=== PATIENT | male | born 1960 | race Caucasian/White ===

== ENCOUNTER 2016-05-13 11:25 | Outpatient (CLI) ==
[2012-10-19 09:40] VITALS: TEMP 98.2
[2015-06-15 08:47] VITALS: BMI 29.4
[2016-05-13 11:45] LABS: HEMOGLOBIN 13.7 g/dl (14.0-18.0); MEAN CORPUSCULAR HGB CONC 31.9 (31.8-35.4); MEAN CORPUSCULAR VOLUME 94.1 fl (80.0-94.0); RED BLOOD COUNT 4.57 10^6/ul (4.70-6.10); WHITE BLOOD COUNT 7.76 K/ul (4.2-10.2)
[2016-05-13 12:01] LABS: ANION GAP 14.7; BUN/CREATININE RATIO 15.07; CALCIUM 9.3 mg/dL (8.2-10.2); CREATININE 3.25 mg/dL (0.60-1.10); POTASSIUM 5.7 mmol/L (3.5-5.1)
[2016-05-14 09:37] LABS: URINE CREATININE 152.7 mg/dL (Not Estab.)
[2016-05-14 14:34] LABS: URINE MALB/CR RATIO 5.5 mg/g creat (0.0-30.0)
== END 2016-05-13 11:26 | disposition home or self-care (01) ==
LOC: LAB 11:25
PROVIDERS: ATTEND Internal Medicine Nephrology
DX: N18.3 Chronic kidney disease, stage 3 (moderate) (principal)
CPT/HCPCS: 36415; 80048; 82043; 85027

== ENCOUNTER 2016-05-21 10:15 | Outpatient (CLI) ==
[2012-10-19 09:40] VITALS: TEMP 98.2
[2015-06-15 08:47] VITALS: BMI 29.4
[2016-05-21 10:56] LABS: ALBUMIN 4.6 g/dL (3.4-5.0); ALBUMIN/GLOBULIN RATIO 1.53; BILIRUBIN,TOTAL 0.89 mg/dL (0.00-1.20); BUN/CREATININE RATIO 20.33; TOTAL PROTEIN 7.6 g/dL (6.4-8.2)
== END 2016-05-21 10:16 | disposition home or self-care (01) ==
LOC: LAB 10:15
PROVIDERS: ATTEND Emergency Medicine
DX: E87.5 Hyperkalemia (principal)
CPT/HCPCS: 36415; 80053

== ENCOUNTER 2016-05-26 07:35 | Outpatient (CLI) ==
[2012-10-19 09:40] VITALS: TEMP 98.2
[2015-06-15 08:47] VITALS: BMI 29.4
[2016-05-26 08:08] LABS: ALBUMIN/GLOBULIN RATIO 1.33; ANION GAP 14.7; BILIRUBIN,TOTAL 0.55 mg/dL (0.00-1.20); BUN/CREATININE RATIO 17.93; CREATININE 2.23 mg/dL (0.60-1.10); POTASSIUM 4.7 mmol/L (3.5-5.1)
== END 2016-05-26 07:36 | disposition home or self-care (01) ==
LOC: LAB 07:35
PROVIDERS: ATTEND Emergency Medicine
DX: N18.9 Chronic kidney disease, unspecified (principal)
CPT/HCPCS: 36415; 80053

== ENCOUNTER 2016-06-27 10:58 | Outpatient (CLI) ==
[2012-10-19 09:40] VITALS: TEMP 98.2
[2015-06-15 08:47] VITALS: BMI 29.4
[2016-06-27 11:25] LABS: HEMATOCRIT 46.2 % (42.0-52.0); HEMOGLOBIN 15.5 g/dl (14.0-18.0); MEAN CORPUSCULAR HEMOGLOBIN 30.8 pg (27.0-31.0); MEAN CORPUSCULAR HGB CONC 33.5 (31.8-35.4); MEAN CORPUSCULAR VOLUME 91.7 fl (80.0-94.0); RED BLOOD COUNT 5.04 10^6/ul (4.70-6.10); WHITE BLOOD COUNT 7.18 K/ul (4.2-10.2)
[2016-06-27 11:38] LABS: BUN/CREATININE RATIO 11.8; CALCIUM 9.3 mg/dL (8.2-10.2); CREATININE 1.44 mg/dL (0.60-1.10)
[2016-07-02 08:18] LABS: URINE MALB/CR RATIO 56.8
== END 2016-06-27 10:59 | disposition home or self-care (01) ==
LOC: LAB 10:58
PROVIDERS: ATTEND Internal Medicine Nephrology
DX: N18.3 Chronic kidney disease, stage 3 (moderate) (principal)
CPT/HCPCS: 36415; 80048; 82043; 82570; 84156; 85027

== ENCOUNTER 2016-07-03 11:37 | Outpatient (CLI) ==
[2012-10-19 09:40] VITALS: TEMP 98.2
[2015-06-15 08:47] VITALS: BMI 29.4
--- NOTE | 2016-07-03 15:49 | MRI ---
EXAM: MRI left elbow without contrast. HISTORY: Pain. Olecranon process area sensitive to slight impact. Bump. No left elbow surgery. In jury. TECHNIQUE: Using a local extremity coil on a high field strength magnet multiplanar multisequence m agnet resonance imaging was performed of the left elbow without intravenous or intra-articular gadol inium contrast... COMPARISON: Three-view plain film examination left elbow 06/15/2015. FINDINGS: The alignment of the left elbow shows no dislocation or joint subluxations. Bone marrow signal intensity shows no acute fracture, stress fracture or bone erosions. Physiologic amount flui d left elbow joint. No osteochondral loose bodies. Posterior distal insertional triceps tendinosis . Some overlying skin thickening/induration. No discrete olecranon bursitis. Within the anterior compartment the distal insertional biceps and brachialis tendons intact and normal signal intensity. Within the lateral compartment the radial collateral ligament and lateral ulnar collateral ligament intact as is the annular ligament common extensor tendon origin intact and normal signal intensity a nd morphology. Within the medial compartment the ulnar collateral ligament intact. Ulnar nerve within normal limit s signal intensity and morphology located in expected position within the cubital tunnel. Origin of the flexor pronator wad intact and within normal limits signal intensity and morphology.. IMPRESSION: No acute fracture or stress fracture identified. No left elbow effusion. Posterior distal insertional triceps tendinosis. Some overlying skin thickening/induration without discrete olecranon bursitis. Intact medial and lateral compartment ligaments.
== END 2016-07-03 11:38 | disposition home or self-care (01) ==
LOC: RAD 11:37
PROVIDERS: ATTEND Orthopaedic Surgery
DX: M25.522 Pain in left elbow (principal)

== ENCOUNTER 2016-09-01 11:26 | Outpatient (CLI) ==
[2012-10-19 09:40] VITALS: TEMP 98.2
[2015-06-15 08:47] VITALS: BMI 29.4
[2016-09-01 11:51] LABS: HEMATOCRIT 54.2 % (42.0-52.0); HEMOGLOBIN 18.2 g/dl (14.0-18.0); MEAN CORPUSCULAR HEMOGLOBIN 29.9 pg (27.0-31.0); MEAN CORPUSCULAR HGB CONC 33.6 (31.8-35.4); MEAN CORPUSCULAR VOLUME 89.1 fl (80.0-94.0); RED BLOOD COUNT 6.08 10^6/ul (4.70-6.10); WHITE BLOOD COUNT 9.95 K/ul (4.2-10.2)
[2016-09-01 12:08] LABS: ALBUMIN 3.9 g/dL (3.4-5.0); BILIRUBIN,DIRECT 0.59 mg/dL (0.00-0.30); BILIRUBIN,TOTAL 1.46 mg/dL (0.00-1.20); TOTAL PROTEIN 6.9 g/dL (6.4-8.2)
[2016-09-02 05:11] LABS: TESTOSTERONE 1061 ng/dL (348-1197)
== END 2016-09-01 11:27 | disposition home or self-care (01) ==
LOC: LAB 11:26
PROVIDERS: ATTEND Physician Assistant Medical
DX: E29.1 Testicular hypofunction (principal)
CPT/HCPCS: 36415; 80076; 84403; 85027

== ENCOUNTER 2017-01-22 09:57 | Outpatient (CLI) ==
[2012-10-19 09:40] VITALS: TEMP 98.2
[2015-06-15 08:47] VITALS: BMI 29.4
[2017-01-22 10:45] LABS: HEMATOCRIT 40.2 % (42.0-52.0); HEMOGLOBIN 13.9 g/dl (14.0-18.0); MEAN CORPUSCULAR HEMOGLOBIN 31.2 pg (27.0-31.0); MEAN CORPUSCULAR HGB CONC 34.6 (31.8-35.4); MEAN CORPUSCULAR VOLUME 90.3 fl (80.0-94.0); RED BLOOD COUNT 4.45 10^6/ul (4.70-6.10); WHITE BLOOD COUNT 6.62 K/ul (4.2-10.2)
[2017-01-22 10:54] LABS: ANION GAP 11.8; BUN/CREATININE RATIO 15.95; CALCIUM 9.7 mg/dL (8.2-10.2); CREATININE 1.88 mg/dL (0.60-1.10); POTASSIUM 3.8 mmol/L (3.5-5.1)
[2017-01-23 08:38] LABS: URINE CREATININE 63.3 mg/dL (Not Estab.); URINE MALB/CR RATIO < 4.7 mg/g creat (0.0-30.0)
== END 2017-01-22 09:58 | disposition home or self-care (01) ==
LOC: LAB 09:57
PROVIDERS: ATTEND Internal Medicine Nephrology
DX: N18.3 Chronic kidney disease, stage 3 (moderate) (principal)
CPT/HCPCS: 36415; 80048; 82043; 85027

== ENCOUNTER 2017-03-17 11:44 | Outpatient (CLI) ==
[2012-10-19 09:40] VITALS: TEMP 98.2
[2015-06-15 08:47] VITALS: BMI 29.4
[2017-03-17 12:21] LABS: HEMATOCRIT 39.7 % (42.0-52.0); HEMOGLOBIN 13.8 g/dl (14.0-18.0); MEAN CORPUSCULAR HEMOGLOBIN 31.9 pg (27.0-31.0); MEAN CORPUSCULAR HGB CONC 34.8 (31.8-35.4); MEAN CORPUSCULAR VOLUME 91.9 fl (80.0-94.0); RED BLOOD COUNT 4.32 10^6/ul (4.70-6.10); WHITE BLOOD COUNT 7.92 K/ul (4.2-10.2)
[2017-03-17 13:04] LABS: ALBUMIN 3.3 g/dL (3.4-5.0); BILIRUBIN,DIRECT 0.33 mg/dL (0.00-0.30); BILIRUBIN,TOTAL 0.59 mg/dL (0.00-1.20); TOTAL PROTEIN 6.2 g/dL (6.4-8.2)
[2017-03-18 06:11] LABS: TESTOSTERONE 838 ng/dL (264-916)
== END 2017-03-17 11:45 | disposition home or self-care (01) ==
LOC: LAB 11:44
PROVIDERS: ATTEND Physician Assistant Medical
DX: E29.1 Testicular hypofunction (principal); N40.1 Benign prostatic hyperplasia with lower urinary tract symptoms
CPT/HCPCS: 36415; 80076; 84153; 84403; 85027

== ENCOUNTER 2017-07-09 08:33 | Outpatient (CLI) ==
[2012-10-19 09:40] VITALS: TEMP 98.2
[2015-06-15 08:47] VITALS: BMI 29.4
== END 2017-07-09 08:34 | disposition home or self-care (01) ==
LOC: LAB 08:33
PROVIDERS: ATTEND Internal Medicine Nephrology
DX: N18.3 Chronic kidney disease, stage 3 (moderate) (principal)
CPT/HCPCS: 36415; 80053; 82043; 85027

== ENCOUNTER 2017-10-12 12:23 | Outpatient (CLI) ==
[2012-10-19 09:40] VITALS: TEMP 98.2
[2015-06-15 08:47] VITALS: BMI 29.4
== END 2017-10-12 12:24 | disposition home or self-care (01) ==
LOC: LAB 12:23
PROVIDERS: ATTEND Physician Assistant Medical
DX: E29.1 Testicular hypofunction (principal)
CPT/HCPCS: 36415; 80076; 82670; 84403; 85025; 85027

== ENCOUNTER 2018-01-14 09:52 | Outpatient (CLI) ==
[2012-10-19 09:40] VITALS: TEMP 98.2
[2015-06-15 08:47] VITALS: BMI 29.4
== END 2018-01-14 09:53 | disposition home or self-care (01) ==
LOC: LAB 09:52
PROVIDERS: ATTEND Internal Medicine Nephrology
DX: N18.3 Chronic kidney disease, stage 3 (moderate) (principal)
CPT/HCPCS: 36415; 80053; 82570; 83970; 84156; 85027

== ENCOUNTER 2018-02-03 08:47 | Inpatient (IN) ==
--- NOTE | 2018-02-03 10:03 | CT ---
EXAM: CT Abdomen without contrast. CT Pelvis without contrast. HISTORY: Left flank pain. COMPARISON: 12/24/2009. TECHNIQUE: Multiple axial images of the abdomen and pelvis were obtained without intravenous contras t. Images were reformatted in the sagittal and coronal plane. FINDINGS: Please note that evaluation of the abdominal and pelvic structures is limited due to lack of intravenous contrast. No acute abnormality identified in the lung bases. Degenerative changes are present in the spine. The liver, gallbladder, pancreas, spleen, and adrenal glands demonstrate normal contour. There is a 0.2 cm nonobstructing left renal calculus. There is a 4.4 x 4.2 cm fluid density right renal cortica l lesion on axial image 53. Punctate nonobstructing right renal calculus noted on coronal image 61. 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 No hydronephrosis identified. No ure teral or bladder calculi identified. Bladder appears normal. There is mild wall thickening and adjacent inflammation of the sigmoid colon which occurs in the sett ing of diverticulosis. There is no evidence for bowel obstruction. There is no evidence for perfora tion or abscess. The appendix is normal. Fat-containing umbilical hernia noted. Suspect previous l eft inguinal hernia repair. Phleboliths noted in the pelvis. No free fluid or free air identified. Atherosclerotic calcifications noted. Nonenlarged mesenteric and retroperitoneal lymph nodes are id entified. IMPRESSION: 1. Mild acute sigmoid diverticulitis. 2. Bilateral nephrolithiasis without obstructive uropathy. Right renal cyst.
--- NOTE | 2018-02-03 10:42 | ED.PDOC ---
General ED Provider: Dr. SAMM CORTEZ Chief Complaint: Back Pain Stated Complaint: abominal pain bilateral flank pain Time Seen by Physician: 09:00 (roxie farr RN present at all times no injury reported ) Mode of Arrival: Stretcher Information Source: Patient, EMT Exam Limitations: No limitations Primary Care Provider: SALLY JAMA Nursing and Triage Documentation Reviewed and Agree: Yes Does patient meet sepsis criteria?: No If yes, has appropriate treatment been initiated?: No System Inflammatory Response Syndrome: Not Applicable Sepsis Protocol: For patient's 13 years and over: Temp is 96.8 and below OR 101 and greater Pulse >90 BPM Resp >20/minute Acutely Altered Mental Status Are patient's symptoms suggestive of a new infection, such as: -Pneumonia -Skin, Soft Tissue -Endocarditis -UTI -Bone, Joint Infection -Implantable Device -Acute Abdominal Infection -Wound Infection -Meningitis -Blood Stream Catheter Infection -Unknown GI Complaint Exam - Abdominal Pain Complaint/Exam Onset: Gradual Duration: 1 day Symptoms Are: Still present Timing: Intermittent Initial Severity: Moderate Current Severity: Mild Location of Pain: LLQ Radiates To: Reports: Flank (left) Character: Reports: Aching Aggravating: Reports: None Alleviating: Reports: None Associated Signs and Symptoms: Reports: Back pain, Constipation, Urinary frequency, Decreased appetite. Denies: Diaphoresis, Fever, Cough, Chest pain, Dizziness, Blood in stool, Dysuria, Decreased urine output, Discharge, Nausea, Vomiting, Diarrhea, Decreased activity Related History: Reports: Similar episode AAA Risk Factors: Reports: Hypertension Cardiac Risk Factors: Reports: DM, Hypertension, Elevated lipids Testicular Torsion Risk Factors: Reports: None Surgical Obstruction Risk Factors: Reports: None Related Surgical History: Reports: None Abdominal Findings: Present: None Differential Diagnoses: Appendicitis, Bowel Obstruction, Constipation, Diverticulitis, Renal Colic, UTI Quality Indicators for AMI: EKG in 10min. Quality Indicators for Cardiac Chest Pain: EKG in 10min. Quality Indicator For Non-Traumatic Chest Pain/Syncope: EKG Performed Review of Systems - Review Of Systems Constitutional: Reports: No symptoms Eyes: Reports: No symptoms Ears, Nose, Mouth, Throat: Reports: No symptoms Respiratory: Reports: No symptoms Cardiac: Reports: No symptoms GI: Reports: Abdominal pain : Reports: No symptoms Musculoskeletal: Reports: No symptoms Skin: Reports: No symptoms Neurological: Reports: No symptoms Endocrine: Reports: No symptoms Hematologic/Lymphatic: Reports: No symptoms All Other Systems: Reviewed and Negative Past Medical History - Past Medical History Endocrine: Reports: DM 2, Dyslipidemia Cardiovascular: Reports: Hypertension Respiratory: Reports: None Hematological: Reports: None Gastrointestinal: Reports: None Genitourinary: Reports: CKD Neuro/Psych: Reports: Anxiety Musculoskeletal: Reports: None Cancer: Reports: None Other Pertinent Past Medical History: neuropathy - Surgical History General Surgical History: Reports: Tonsillectomy, Adenoidectomy, Orthopedic ( right hand), Other (lymphnode removal) - Family History Family History: Reports: Unknown - Social History Smoking Status: Former smoker Hx Substance Use: No Alcohol Screening: None Physical Exam - Physical Exam Appearance: Well-appearing, No pain distress, Well-nourished Eyes: PRAVEENA, EOMI, Conjunctiva clear ENT: Ears normal, Nose normal, Oropharynx normal Respiratory: Airway patent, Breath sounds clear, Breath sounds equal, Respirations nonlabored Cardiovascular: RRR, Pulses normal, No rub, No murmur GI/: Soft, Nontender, No masses, Bowel sounds normal, No Organomegaly Musculoskeletal: Normal strength, ROM intact, No edema, No calf tenderness Skin: Warm, Dry, Normal color Neurological: Sensation intact, Motor intact, Reflexes intact, Cranial nerves intact, Alert, Oriented Psychiatric: Affect appropriate, Mood appropriate Interpretation - Radiology Interpretation Radiology Interpretation By: Radiologist Radiology Results: Positive (diverticulitis) Re-Evaluation - Re-Evaluation Time of Re-Evaluation: 10:00 Status: Unchanged Vital Signs Stable: Yes Pain Level: 3/10 Appearance: NAD Lungs: Clear Skin: Warm and Dry Neuro: Alert and Oriented X3 CV: RRR - Re-Evaluation Time of Re-Evaluation: 10:42 Status: Unchanged Vital Signs Stable: Yes Appearance: NAD Skin: Warm and Dry Neuro: Alert and Oriented X3 CV: RRR Physician Notification - Case Discussed Physician Notified: pmd Time of Notification: 10:42 (admitt) Admit To: Inpatient Critical Care Note - Critical Care Note Total Time (mins): 0 Course - Course Hematology/Chemistry: 02/03/18 09:30 02/03/18 09:30 Orders, Labs, Meds: Lab Review 02/03/18 02/03/18 02/03/18 09:30 09:30 09:30 WBC 7.72 RBC 3.45 L Hgb 11.2 L Hct 32.6 L MCV 94.5 H MCH 32.5 H MCHC 34.4 RDW Coeff of Bernard 13.8 Plt Count 87 L Immature Gran % (Auto) 0.3 Neut % (Auto) 70.0 Lymph % (Auto) 18.4 [place] % (Auto) 8.7 Eos % (Auto) 2.2 Baso % (Auto) 0.4 Immature Gran # (Auto) 0.0 Neut # (Auto) 5.4 Lymph # (Auto) 1.4 [place] # (Auto) 0.7 Eos # (Auto) 0.2 Baso # (Auto) 0.0 Sodium 136.7 L Potassium 3.98 Chloride 104.1 Carbon Dioxide 21.4 L Anion Gap 15.18 BUN 30.9 H Creatinine 2.00 H Estimated GFR (MDRD) 34.00 BUN/Creatinine Ratio 15.45 Glucose 206.2 H Lactic Acid 1.28 Calcium 8.62 Total Bilirubin 0.82 AST 44.1 ALT 25.3 Alkaline Phosphatase 241.1 H Total Protein 6.18 L Albumin 3.48 L Globulin 2.70 Albumin/Globulin Ratio 1.28 Amylase 119.7 H Lipase 203.8 Procalcitonin 02/03/18 09:30 WBC RBC Hgb Hct MCV MCH MCHC RDW Coeff of Bernard Plt Count Immature Gran % (Auto) Neut % (Auto) Lymph % (Auto) [place] % (Auto) Eos % (Auto) Baso % (Auto) Immature Gran # (Auto) Neut # (Auto) Lymph # (Auto) [place] # (Auto) Eos # (Auto) Baso # (Auto) Sodium Potassium Chloride Carbon Dioxide Anion Gap BUN Creatinine Estimated GFR (MDRD) BUN/Creatinine Ratio Glucose Lactic Acid Calcium Total Bilirubin AST ALT Alkaline Phosphatase Total Protein Albumin Globulin Albumin/Globulin Ratio Amylase Lipase Procalcitonin 0.12 Orders Category Date Time Status EKG-(ED ONLY) Stat CARDIO 02/03/18 10:36 Ordered AMYLASE Stat LAB 02/03/18 09:30 Completed BLOOD CULTURE (ED ONLY) Stat LAB 02/03/18 09:30 Received CBC W/ AUTO DIFF Stat LAB 02/03/18 09:30 Completed COMPREHENSIVE METABOLIC PANEL Stat LAB 02/03/18 09:30 Completed LACTIC ACID Stat LAB 02/03/18 09:30 Completed LIPASE Stat LAB 02/03/18 09:30 Completed PROCALCITONIN Stat LAB 02/03/18 09:30 Completed URINALYSIS C & S IF INDICATED Stat LAB 02/03/18 09:[address] ABD/PEL WO RENAL STONE PROT Stat RADS 02/03/18 09:20 Completed Vital Signs: Temp Pulse Resp BP Pulse Ox 02/03/18 08:48 99.9 F H 113 H 16 143/78 H 96 Departure - Departure Time of Disposition: 10:43 Disposition: HOME SELF-CARE Discharge Problem: Diverticulitis, Renal insufficiency Instructions: Diverticulitis (ED) Condition: Good Pt referred to PMD for follow-up: Yes IPMP verified?: No Additional Instructions: Please call your Family Physician as soon as possible to schedule a follow-up appointment. Allergies/Adverse Reactions: Allergies codeine Adverse Reaction (Verified 02/03/18 08:57) gemfibrozil Adverse Reaction (Verified 02/03/18 08:57) Home Medications: Ambulatory Orders Alprazolam [Xanax] 0.5 mg PO TID 10/19/12 Doxepin HCl 250 mg PO BEDTIME 10/19/12 Fenofibrate [Tricor] 160 mg PO DAILY 10/19/12 Insulin Detemir [Levemir] 70 unit SQ DAILY 10/19/12 Lisinopril [Zestril] 10 mg PO DAILY 10/19/12 Niacin 1,000 mg PO BID 10/19/12 [place]-3 Fatty Acids/Fish Oil [Fish Oil 1,000 mg Capsule] 1 each PO DAILY Rosuvastatin Calcium [Crestor] 10 mg PO BEDTIME 10/19/12 Tamsulosin HCl [Flomax] 0.4 mg PO DAILY 10/19/12 Cholecalciferol (Vitamin D3) [Vitamin D] 1,000 unit PO DAILY 09/18/15 Donepezil HCl 5 mg PO DAILY 10/14/17 Ferrous Sulfate 325 mg PO DAILY 10/14/17 Aspirin [Aspir-Low] 81 mg PO DAILY 02/03/18 Disposition Discussed With: Patient
[2018-02-03] MEDS: SODIUM CHLORIDE 1,000 ML IV SCH (11:57)
[2018-02-03] MEDS: ROCEPHIN 1 GM in SODIUM CHLORIDE 50 ML IV SCH (12:00)
[2018-02-03] MEDS: FLAGYL 500 MG/100 ML 500 MG in PREMIX 100 ML NS 1 BAG IV SCH ×4 (12:51→23:05)
[2018-02-03 12:56] VITALS: BMI 27.6
[2018-02-03] MEDS ORDERED: XANAX PO PRN (13:26)
[2018-02-03] MEDS ORDERED: XANAX PO SCH (15:00)
[2018-02-03] MEDS: HUMULIN R SUBCUT PRN ×2 (16:12→21:15)
--- NOTE | 2018-02-03 16:41 | DI ---
EXAM: Two views of the chest. History: Cough. Findings: Heart size is within normal limits. No focal consolidation. No appreciable pleural fluid and no pneumothorax. No acute osseous abnormalities. Atherosclerotic vascular calcifications of th e aortic knob. There may be bronchial wall thickening. Impression: There may be bronchial wall thickening. There is no consolidated pneumonia.
[2018-02-03] MEDS ORDERED: NIACIN 1000 MG PO SCH (21:00)
[2018-02-03] MEDS ORDERED: NIASPAN PO SCH (21:00)
[2018-02-03] MEDS ORDERED: CRESTOR PO SCH (21:00)
[2018-02-03] MEDS: LEVEMIR SUBCUT SCH (21:16)
[2018-02-03] MEDS: DOXEPIN HCL PO SCH (21:18)
[2018-02-04] MEDS: FLAGYL 500 MG/100 ML 500 MG in PREMIX 100 ML NS 1 BAG IV SCH ×3 (06:08→17:11)
[2018-02-04] MEDS: HUMULIN R SUBCUT PRN ×2 (06:09→17:11)
--- NOTE | 2018-02-04 06:53 | HP ---
DATE OF SERVICE: 02/03/18 HISTORY OF PRESENT ILLNESS: This is a 57-year-old white male who presents to the emergency room with low grade fever and abdominal pain. He describes the pain more left-sided and has been occurring for several days. PAST MEDICAL HISTORY: Diabetes mellitus Type 2, previous A1C was 7.6 on 11/18 Hypertension Dyslipidemia Coronary artery disease with LAD at 40% blockage Chronic kidney disease, Stage 3, sees Dr. Osborn History of gout Hypogonadism History of skin melanoma Degenerative joint disease of the spine Insomnia PAST SURGICAL HISTORY: Left inguinal hernia repair Cath, May [address] De La Garza REVIEW OF SYSTEMS: CONSTITUTIONAL: Positive for low grade fever, fatigue. No night sweats. No malaise, lethargy. No chills. HEENT: Eyes: No visual changes. No eye pain. No eye discharge. ENT: No runny nose. No epistaxis. No sinus pain. No sore throat. No odynophagia. No ear pain. No congestion. RESPIRATORY: No cough, no congestion. No hemoptysis. No shortness of breath. CARDIOVASCULAR: No angina symptoms. No CHF symptoms. No atypical chest pain for CAD. No palpitations. No PND. No orthopnea. GASTROINTESTINAL: Left-sided abdominal pain. No nausea or vomiting. No diarrhea or constipation. No hematemesis. No hematochezia. GENITOURINARY: No urgency. No frequency. No dysuria. No hematuria. No obstructive symptoms. No discharge. No pain. No significant abnormal bleeding. MUSCULOSKELETAL: No musculoskeletal pain. No joint swelling. No arthritis. NEUROLOGICAL: No headache. No neck pain. No syncope. No seizures. No dizziness. PSYCHIATRIC: Not anxious. No depression. No suicidal thoughts. No homicidal thoughts. SKIN: No rash. No lesions. No wounds. ENDOCRINE: No unexplained weight loss. No weight gain. HEMATOLOGIC/LYMPHATIC: No anemia. No purpura. No petechiae. No prolonged or excessive bleeding. No palpable lymph nodes. PERSONAL/FAMILY/SOCIAL HISTORY: The patient is not , single, lives at home alone. Nonsmoker. No alcohol or ilicit drug use. MEDICATIONS: (HOME) Levemir 70 units SQ bedtime [place]-3 Fatty Acids/Fish Oil one each p.o. daily Doxepin 250 mg p.o. bedtime Xanax 0.5 mg p.o. t.i.d. p.r.n. Zestril 10 mg p.o. daily Flomax 0.4 mg p.o. daily Crestor 10 mg p.o. q.a.m. Niacin 1,000 mg p.o. b.i.d. Tricor 160 mg p.o. daily Cholecalciferol 1,000 unit p.o. daily Ferrous Sulfate 325 mg p.o. daily Aspirin 81 mg p.o. daily Donepezil 5 mg p.o. q.a.m. ALLERGIES: CODEINE, GEMFIBROZIL PHYSICAL EXAMINATION: V/S: Temperature 99.9, pulse 113, BP 143/78, respiratory rate 16, 02 sat 96 on room air. Height 5'10", Weight 202 lbs, 9.6 ozs. HEENT: The patient is pale. Head normocephalic, atraumatic. Eyes: Extraocular muscles are intact. Pupils are equal, round and reactive to light and accommodation. Ears: No lesions. Nose appeared normal. Throat: No exudate or erythema. NECK: Supple. No JVD, no carotid bruit. No lymphadenopathy or thyromegaly. LUNGS: Clear to auscultation. Percussion note normal. Chest symmetrical. HEART: S1, S2, no S3. No murmurs. No cyanosis or clubbing. No ascites. Pulses: Dorsalis pedis and posterior tibial pulses +1 to +2 bilaterally. ABDOMEN: Soft. Left upper quadrant mild tenderness. Bowel sounds active. No CVA tenderness. No mass felt. EXTREMITIES: No edema. Full range of motion of all extremities, equal. NEUROLOGIC: No focal deficit. Cranial nerves II through XII are grossly intact. No headache, no double vision or headache. SKIN: Not dry. Intact. Turgor - normal. LYMPHATIC: No palpable lymph nodes/no lymphedema. MUSCULOSKELETAL: Normal joints with no swelling. Muscle tone is normal. CT scan shows mild acute sigmoid diverticulitis, bilateral nephrolithiasis without obstruction. Sodium 136, potassium 3.9, BUN 30.9, creatinine 2. GFR 34, total bili 0.8, AST 44, ALT 25, total protein 6.1, albumin 3.4. Amylase 119, lipase 203, lactic acid 1.2. White count 7.72, hemoglobin 11.2, hematocrit 32.6. ASSESSMENT: 1. ACUTE SIGMOID DIVERTICULITIS 2. DEHYDRATION WITH ELEVATED KIDNEY FUNCTION 3. ACUTE KIDNEY INJURY 4. DIABETES MELLITUS TYPE 2 5. HYPERTENSION 6. DYSLIPIDEMIA 7. CORONARY ARTERY DISEASE 8. CHRONIC KIDNEY DISEASE PLAN: 1. We will admit. 2. Routine telemetry orders. 3. CBC, CMP daily. 4. Start Levaquin 500 mg IV daily. 5. IV fluids 75 cc/hr of NS. 6. Chest x-ray. 7. Flagyl 500 mg IV q.8hr. 8. Sliding scale coverage for sugar. 9. Will follow closely. TIME SPENT: More than 70 minutes. MTDD
[2018-02-04] MEDS: ZESTRIL PO SCH (08:38)
[2018-02-04] MEDS: ROCEPHIN 1 GM in SODIUM CHLORIDE 50 ML IV SCH (08:38)
[2018-02-04] MEDS: FLOMAX PO SCH (08:38)
[2018-02-04] MEDS: ASPIRIN EC PO SCH (08:38)
[2018-02-04] MEDS: ARICEPT PO SCH (08:40)
[2018-02-04] MEDS: SODIUM CHLORIDE 1,000 ML IV SCH (08:41)
[2018-02-04] MEDS ORDERED: NON-FORMULARY MEDICATION (Ferrous Sulfate [Ferrous Sulfate] 325 MG) PO SCH (09:00)
[2018-02-04] MEDS ORDERED: ZESTRIL PO SCH (09:00)
[2018-02-04] MEDS ORDERED: NON-FORMULARY MEDICATION (Omega-3 Fatty Acids/Fish Oil [Fish Oil 1,000 Mg Capsule] 1 EACH) PO SCH (09:00)
[2018-02-04] MEDS ORDERED: DONEPEZIL HCL 5 MG PO SCH ×2 (09:00)
[2018-02-04] MEDS ORDERED: TRIGLIDE PO SCH (09:00)
[2018-02-04] MEDS ORDERED: ARICEPT PO SCH (09:00)
[2018-02-04] MEDS ORDERED: FERROUS SULFATE PO SCH (09:00)
[2018-02-04] MEDS ORDERED: OMEGA-3 FISH OIL PO SCH (09:00)
--- NOTE | 2018-02-04 10:27 | PCM.PROG ---
Attending Provider: ATTENDING PROVIDER: Dr. SALLY JAMA This patient is seen with Glendy Harrell, Nurse Practitioner. DATE OF SERVICE: 02/04/18 SUBJECTIVE: This 57 year old WHITE/ M was hospitalized 02/03/18. The patient is lying in bed, resting comfortably. He is still with left-sided abdominal pain. Hemoglobin is down likely from hemodilution. Will do stool for occult blood. REVIEW OF SYSTEMS: CONSTITUTIONAL: No night sweats. No fatigue, malaise, lethargy. No fever or chills. HEENT: Eyes: No visual changes. No eye pain. No eye discharge. ENT: No runny nose. No epistaxis. No sinus pain. No odynophagia. No congestion. RESPIRATORY: No cough, no congestion. No hemoptysis. No shortness of breath. CARDIOVASCULAR: No angina symptoms. No CHF symptoms. No atypical chest pain for CAD. No palpitations. No orthopnea.. GASTROINTESTINAL: Abdominal pain. No nausea or vomiting. No diarrhea or constipation. No hematemesis. No hematochezia. GENITOURINARY: No urgency. No frequency. No dysuria. No hematuria. No obstructive symptoms. No discharge. No pain. No significant abnormal bleeding. MUSCULOSKELETAL: No musculoskeletal pain; no joint swelling. NEUROLOGICAL: Awake, alert, oriented to time, place and person. No headache. No neck pain. No syncope. No seizures. No dizziness. PSYCHIATRIC: Not anxious. No depression. No suicidal thoughts. No homicidal thoughts. SKIN: No rash. No lesions. No wounds. ENDOCRINE: No unexplained weight loss. No weight gain. HEMATOLOGIC/LYMPHATIC: No anemia. No purpura. No petechiae. No prolonged or excessive bleeding. No palpable lymph nodes. PHYSICAL EXAMINATION: GENERAL: The patient is awake, alert and oriented, lying in bed in no distress. VITAL SIGNS: Temperature 98.0 F, Pulse 68, Respiratory Rate 18, BP 112/73, Pulse Ox 96% HEENT: Head normocephalic, atraumatic. Eyes: Extraocular muscles are intact. Pupils are equal, round and reactive to light and accommodation. Ears: No lesions. Nose appeared normal. Throat: No exudate or erythema. NECK: Supple. No JVD, no carotid bruit. No lymphadenopathy or thyromegaly. LUNGS: Diminished breath sounds. Clear to auscultation. Percussion note normal. Chest symmetrical. HEART: S1, S2, no S3. No murmurs. No cyanosis or clubbing. No ascites. Pulses: Dorsalis pedis and posterior tibial pulses +1 to +2 both sides. ABDOMEN: Left lower quadrant tenderness. Soft. Bowel sounds active. No CVA tenderness. No mass felt. EXTREMITIES: No edema. Full range of motion of all extremities, equal. NEUROLOGIC: No focal deficit. Cranial nerves II through XII are grossly intact. No headache, no double vision or headache. SKIN: Not dry. Intact. Turgor-normal. LYMPHATIC: No palpable lymph nodes/no lymphedema. MUSCULOSKELETAL: Normal joints with no swelling. Muscle tone is normal. LAB REVIEW: 02/04/18 04:20 02/04/18 04:20 02/04/18 04:20: Sodium 138.3, Potassium 4.24, Chloride 107.8 H, Carbon Dioxide 26.2, Anion Gap 8.54, BUN 32.2 H, Creatinine 1.76 H, Estimated GFR (MDRD) 40.00 , BUN/Creatinine Ratio 18.29, Glucose 148.5 H D, Calcium 8.14 L, Total Bilirubin 0.47, AST 44.8, ALT 22.6, Alkaline Phosphatase 207.7 H D, Total Protein 5.52 L, Albumin 2.92 L, Globulin 2.60, Albumin/Globulin Ratio 1.12 02/04/18 04:20: WBC 6.05, RBC 3.01 L, Hgb 9.8 L, Hct 28.2 L, MCV 93.7, MCH 32.6 H, MCHC 34.8, RDW Coeff of Bernard 13.8, Plt Count 89 L, Immature Gran % (Auto) 0.2 , Neut % (Auto) 52.3, Lymph % (Auto) 33.7, [place] % (Auto) 10.7 H, Eos % (Auto) 2.6, Baso % (Auto) 0.5, Immature Gran # (Auto) 0.0, Neut # (Auto) 3.2, Lymph # ( Auto) 2.0, [place] # (Auto) 0.7, Eos # (Auto) 0.2, Baso # (Auto) 0.0 02/03/18 10:45: Urine Color Yellow, Urine Clarity Clear, Urine pH 5.5, Ur Specific [place] 1.015, Urine Protein Negative, Urine Glucose (UA) Negative, Urine Ketones Negative, Urine Blood Trace-intact, Urine Nitrite Negative, Urine Bilirubin Negative, Urine Urobilinogen 0.2, Ur Leukocyte Esterase Negative, Urine Microscopic RBC 0-2, Ur Squamous Epith Cells Not present 02/03/18 09:30: Procalcitonin 0.12 02/03/18 09:30: Lactic Acid 1.28 02/03/18 09:30: Sodium 136.7 L, Potassium 3.98, Chloride 104.1, Carbon Dioxide 21.4 L, Anion Gap 15.18, BUN 30.9 H, Creatinine 2.00 H, Estimated GFR (MDRD) 34.00, BUN/Creatinine Ratio 15.45, Glucose 206.2 H, Calcium 8.62, Total Bilirubin 0.82, AST 44.1, ALT 25.3, Alkaline Phosphatase 241.1 H, Total Protein 6.18 L, Albumin 3.48 L, Globulin 2.70, Albumin/Globulin Ratio 1.28, Amylase 119.7 H, Lipase 203.8 02/03/18 09:30: WBC 7.72, RBC 3.45 L, Hgb 11.2 L, Hct 32.6 L, MCV 94.5 H, MCH 32.5 H, MCHC 34.4, RDW Coeff of Bernard 13.8, Plt Count 87 L, Immature Gran % (Auto ) 0.3, Neut % (Auto) 70.0, Lymph % (Auto) 18.4, [place] % (Auto) 8.7, Eos % (Auto) 2.2, Baso % (Auto) 0.4, Immature Gran # (Auto) 0.0, Neut # (Auto) 5.4, Lymph # ( Auto) 1.4, [place] # (Auto) 0.7, Eos # (Auto) 0.2, Baso # (Auto) 0.0 ASSESSMENT: 1. ACUTE SIGMOID DIVERTICULITIS 2. DEHYDRATION - IMPROVING 3. CHRONIC KIDNEY DISEASE STAGE 3 4. DIABETES MELLITUS TYPE 2 5. ANEMIA PLAN: 1. Repeat amylase and lipase. 2. Stool for occult blood. 3. [place] diet as tolerated. Plan and coordination of the patient's care discussed in the presence of Planning Consultant and nurse. CONDITION: Stable SCRIBED BY: RAYNE ZEPEDA Sheep Herder scribed while in presence of service performed by Dr. Jama/Glendy Harrell APRN on 02/04/18 ([id number])
[2018-02-04] MEDS: LEVEMIR SUBCUT SCH (21:17)
[2018-02-05] MEDS: FLAGYL 500 MG/100 ML 500 MG in PREMIX 100 ML NS 1 BAG IV SCH ×3 (00:55→11:55)
[2018-02-05] MEDS: DOXEPIN HCL PO SCH (01:10)
[2018-02-05] MEDS: ROCEPHIN 1 GM in SODIUM CHLORIDE 50 ML IV SCH (08:59)
[2018-02-05] MEDS: ARICEPT PO SCH (09:00)
[2018-02-05] MEDS: SODIUM CHLORIDE 1,000 ML IV SCH (09:00)
[2018-02-05] MEDS: ASPIRIN EC PO SCH (09:02)
[2018-02-05] MEDS: FLOMAX PO SCH (09:02)
[2018-02-05] MEDS: ZESTRIL PO SCH (09:02)
--- NOTE | 2018-02-05 09:26 | PCM.PROG ---
Attending Provider: ATTENDING PROVIDER: Dr. SALLY JAMA This patient is seen with Glendy Harrell, Nurse Practitioner. DATE OF SERVICE: 02/05/18 SUBJECTIVE: This 57 year old WHITE/ M was hospitalized 02/03/18. The patient is lying in bed. He has not been sleeping very well. He states his pain has resolved and he would like to go home. He is eating 75% to 100% of his meals. Kidney function improved. He is up and about. REVIEW OF SYSTEMS: CONSTITUTIONAL: No night sweats. No fatigue, malaise, lethargy. No fever or chills. HEENT: Eyes: No visual changes. No eye pain. No eye discharge. ENT: No runny nose. No epistaxis. No sinus pain. No odynophagia. No congestion. RESPIRATORY: No cough, no congestion. No hemoptysis. No shortness of breath. CARDIOVASCULAR: No angina symptoms. No CHF symptoms. No atypical chest pain for CAD. No palpitations. No orthopnea.. GASTROINTESTINAL: No abdominal pain. No nausea or vomiting. No diarrhea or constipation. No hematemesis. No hematochezia. GENITOURINARY: No urgency. No frequency. No dysuria. No hematuria. No obstructive symptoms. No discharge. No pain. No significant abnormal bleeding. MUSCULOSKELETAL: No musculoskeletal pain; no joint swelling. NEUROLOGICAL: Awake, alert, oriented to time, place and person. No headache. No neck pain. No syncope. No seizures. No dizziness. PSYCHIATRIC: Anxious. No depression. No suicidal thoughts. No homicidal thoughts. SKIN: No rash. No lesions. No wounds. ENDOCRINE: No unexplained weight loss. No weight gain. HEMATOLOGIC/LYMPHATIC: No anemia. No purpura. No petechiae. No prolonged or excessive bleeding. No palpable lymph nodes. PHYSICAL EXAMINATION: GENERAL: The patient is awake, alert and oriented, lying in bed in no distress. VITAL SIGNS: Temperature 97.7 F, Pulse 81, Respiratory Rate 18, BP 101/69, Pulse Ox 98% HEENT: Head normocephalic, atraumatic. Eyes: Extraocular muscles are intact. Pupils are equal, round and reactive to light and accommodation. Ears: No lesions. Nose appeared normal. Throat: No exudate or erythema. NECK: Supple. No JVD, no carotid bruit. No lymphadenopathy or thyromegaly. LUNGS: Diminished breath sounds. Clear to auscultation. Percussion note normal. Chest symmetrical. HEART: S1, S2, no S3. No murmurs. No cyanosis or clubbing. No ascites. Pulses: Dorsalis pedis and posterior tibial pulses +1 to +2 both sides. ABDOMEN: Soft. No abdominal tenderness. Bowel sounds active. No CVA tenderness. No mass felt. EXTREMITIES: No edema. Full range of motion of all extremities, equal. NEUROLOGIC: No focal deficit. Cranial nerves II through XII are grossly intact. No headache, no double vision or headache. SKIN: Not dry. Intact. Turgor-normal. LYMPHATIC: No palpable lymph nodes/no lymphedema. MUSCULOSKELETAL: Normal joints with no swelling. Muscle tone is normal. LAB REVIEW: 02/05/18 07:00 02/05/18 07:00 02/05/18 07:00: Sodium 139.6, Potassium 4.10, Chloride 107.0, Carbon Dioxide 26.6, Anion Gap 10.10, BUN 26.0 H, Creatinine 1.70 H, Estimated GFR (MDRD) 41.00 , BUN/Creatinine Ratio 15.29, Glucose 122.1 H, Calcium 8.38 L, Total Bilirubin 0.52, AST 62.6 H, ALT 29.4, Alkaline Phosphatase 172.8 H D, Total Protein 5.96 L , Albumin 3.21 L, Globulin 2.75, Albumin/Globulin Ratio 1.16 02/05/18 07:00: WBC 4.67, RBC 3.14 L, Hgb 10.4 L, Hct 29.5 L, MCV 93.9, MCH 33.1 H, MCHC 35.3, RDW Coeff of Bernard 14.1, Plt Count 94 L, Immature Gran % (Auto ) 0.2, Neut % (Auto) 57.0, Lymph % (Auto) 29.8, [place] % (Auto) 9.4, Eos % (Auto) 3.2, Baso % (Auto) 0.4, Immature Gran # (Auto) 0.0, Neut # (Auto) 2.7, Lymph # ( Auto) 1.4, [place] # (Auto) 0.4, Eos # (Auto) 0.2, Baso # (Auto) 0.0 02/04/18 16:48: Stl Occult Blood (IFOB) Positive, Stool Occult Blood #2 No specimen received, Stool Occult Blood #3 No specimen received 02/04/18 04:15: Amylase 93.3 D, Lipase 268.6 ASSESSMENT: 1. ACUTE SIGMOID DIVERTICULITIS 2. DEHYDRATION -RESOLVED 3. CHRONIC KIDNEY DISEASE STAGE 3 4. DIABETES MELLITUS TYPE 2 5. ANEMIA, IMPROVED PLAN: 1. Repeat abdominal CT this a.m. 2. Anticipate d/c this afternoon with Flagyl 500 mg t.i.d. times 7 days. 3. Cipro 500 mg b.i.d. times 7 days. Plan and coordination of the patient's care discussed in the presence of Child Welfare Manager and nurse. CONDITION: Stable SCRIBED BY: RAYNE ZEPEDA Lead C Developer scribed while in presence of service performed by Dr. Jama/Glendy Harrell APRN on 02/05/18 ([id number])
[2018-02-05 10:12] VITALS: BP 121/73; TEMP 98.6
--- NOTE | 2018-02-05 10:50 | CT ---
EXAM: CT abdomen pelvis without contrast HISTORY: Left abdominal and left flank pain and concern for diverticulitis COMPARISON: CT abdomen 02/03/2018 and multiple priors TECHNIQUE: Serial axial images of the abdomen pelvis were performed from the lung bases through the inferior pelvis without contrast. These were viewed in multiple planes. FINDINGS: Lung bases are clear. Evaluation is limited due to lack of contrast. The liver is unremarkable. The gallbladder is normal . The adrenal glands are normal. Anechoic right renal cyst measures 3.5 cm in diameter. There is m ild bilateral perinephric stranding. There is a nonobstructing 0.2 cm stone in the left kidney. Sple en is normal. The pancreas is unremarkable. The stomach is normal. The small bowel in the abdomen pelvis is unremarkable. There is a fat containing umbilical hernia. The appendix is normal. There is diverticulosis without diverticulitis. Urinary bladder is distende d. Prostate is normal. There is no free air, free fluid or lymphadenopathy. There is mild atherosc lerotic disease. IMPRESSION: 1. No acute intra-abdominal or pelvic process to account for patient's left-sided abdominal pain. T here is diverticulosis without evidence of diverticulitis. 2. Renal stones and right renal cyst with nonspecific perinephric stranding. 3. Fat containing umbilical hernia.
--- NOTE | 2018-02-05 12:42 | PN ---
DATE OF SERVICE: 02/03/18 SUBJECTIVE: The patient was seen and examined today. The patient was admitted with abdominal pain, left lower quadrant, left flank pain, onset [address] The patient on [address] scan had acute diverticulitis. The patient has been on Flagyl and Rocephin. He is up and about doing well. The patient had colonoscopy done 3 to 4 years ago. He doesn't remember if ever told that he had diverticulosis. The patient has had other issues like lumbar radiculopathy, et cetera. The patient' s condition otherwise is stable. The patient will be continued on IV antibiotics. Diet will be changed to soft diet. Diverticulosis diet discussed with the patient. TIME SPENT: More than 30 minutes. Plan and coordination of the patient's care discussed in the presence of nurse. JOSEPH
--- NOTE | 2018-02-05 14:09 | CM.DICTOOL ---
ADMISSION: 02/03/18 11:15 DISCHARGE: FEBRUARY 05, 2018 DATE OF SERVICE: 02/05/18 FINAL DIAGNOSIS SIGMOID DIVERTICULITIS BACK AND FLANK PAIN, LEFT CAD S/P STENT APPLICATION, 2015 HYPERTENSION DYSLIPIDEMIA DM, TYPE 2, 1998 CHRONIC KIDNEY DISEASE, STAGE 3 ANEMIA NEUROPATHY GERD LEFT UMBILICAL HERNIA DIVERTICULOSIS, DR. ASHBY COLONOSCOPY, 2015 BPH OSTEOARTHRITIS, SPINE AND HANDS DDD DISEASE AND FORAMINAL STENOSIS SPINE DEPRESSION/ANXIETY LAST VITALS Temp Pulse Resp BP Pulse Ox 98.6 F 79 18 121/73 96 02/05/18 10:00 02/05/18 10:00 02/05/18 10:00 02/05/18 10:00 02/05/18 10:00 TAKE THESE MEDICATIONS AT HOME Alprazolam (Xanax) 0.5 mg PO TID PRN PRN Reason: Anxiety Aspirin (Aspirin Ec) 81 mg PO DAILYWM [facility] Last Admin: 02/05/18 09:02 Dose: 81 mg Donepezil HCl (Aricept) 5 mg PO DAILY [facility] Last Admin: 02/05/18 09:00 Dose: 5 mg Metronidazole 500 mg PO TID [facility] Last Admin: 02/05/18 11:55 DOSE: 500 MG Cipro 500 mg PO BID [facility] Last Admin: Insulin Detemir (Levemir) 70 unit SUBCUT BEDTIME [facility] Last Admin: 02/04/18 21:17 Dose: 70 unit Lisinopril (Zestril) 10 mg PO DAILY [facility] Last Admin: 02/05/18 09:02 Dose: 10 mg Non-Formulary Medication (Doxepin Hcl [Doxepin Hcl]) 250 mg PO BEDTIME [facility] Last Admin: 02/05/18 01:10 Dose: 250 mg Tamsulosin HCl (Flomax) 0.4 mg PO DAILY [facility] Last Admin: 02/05/18 09:02 Dose: 0.4 mg Cholecalcciferol 1000 units PO DAILY [facility] Last Admin: Ferrous Sulfate 325 mg PO DAILY [facility] Last Admin: Rosuvastatin Calcium (Crestor) 10 mg DAILY [facility] Last Admin: Ferrous Sulfate 325 mg PO DAILY Last Admin: Fenofibrate (Tricor) 160 mg PO DAILY Last Admin: [place] 3 Fatty Acid/Fish Oil Last Admin: Niacin 1000 mg PO BID [facility] Last Admin: ALLERGIES codeine Adverse Reaction (Verified 02/03/18 08:57) gemfibrozil Adverse Reaction (Verified 02/03/18 08:57) DISCONTINUED MEDICATIONS None NEW PRESCRIPTIONS: Flagyl 500 mg TID for 7 days Cipro 500 mg BID for 7 days SMOKING: Not Applicable DISEASE SPECIFIC EDUCATION: Diverticulitis Medications Appointments LAB REVIEW: 02/05/18 07:00 02/05/18 07:00 02/05/18 07:00: Sodium 139.6, Potassium 4.10, Chloride 107.0, Carbon Dioxide 26.6, Anion Gap 10.10, BUN 26.0 H, Creatinine 1.70 H, Estimated GFR (MDRD) 41.00 , BUN/Creatinine Ratio 15.29, Glucose 122.1 H, Calcium 8.38 L, Total Bilirubin 0.52, AST 62.6 H, ALT 29.4, Alkaline Phosphatase 172.8 H D, Total Protein 5.96 L , Albumin 3.21 L, Globulin 2.75, Albumin/Globulin Ratio 1.16 02/05/18 07:00: WBC 4.67, RBC 3.14 L, Hgb 10.4 L, Hct 29.5 L, MCV 93.9, MCH 33.1 H, MCHC 35.3, RDW Coeff of Bernard 14.1, Plt Count 94 L, Immature Gran % (Auto ) 0.2, Neut % (Auto) 57.0, Lymph % (Auto) 29.8, [place] % (Auto) 9.4, Eos % (Auto) 3.2, Baso % (Auto) 0.4, Immature Gran # (Auto) 0.0, Neut # (Auto) 2.7, Lymph # ( Auto) 1.4, [place] # (Auto) 0.4, Eos # (Auto) 0.2, Baso # (Auto) 0.0 02/04/18 16:48: Stl Occult Blood (IFOB) Positive, Stool Occult Blood #2 No specimen received, Stool Occult Blood #3 No specimen received PLAN: Discharge home Diet: Consistent Carbohydrate, Avoid nuts, seeds, husks Activity: Resume as tolerated An appointment is scheduled with Dr. Richards/Glendy Harrell APRN on February 10 at 8:45 am An appointment is scheduled with Dr. Erik Ashby/Yocasta Alcantar APRN on at 1:30 pm [facility] CD provided for CT Abd/Pelvis An appointment is scheduled with Treva Ellison RDH on February 09 at 1 pm for instruction regarding diverticulitis diet/ADA diet Continue medications as listed on nursing discharge information sheet Mr. Ohara is alert and oriented x 3. He is independent with Activities of Daily Living. He is ambulatory without staff assistance or use of assistive device. Meal intakes are good at 75-100%. He denies abdominal pain or nausea. Skin turgor is good. Skin is free of decubitus ulcers or rashes. He has a glucometer with testing supplies available at home for his use. Nadeem Richards MD Glendy Harrell APRN
--- NOTE | 2018-02-08 15:09 | DS ---
DATE OF SERVICE: 02/05/18 FINAL DIAGNOSIS: SIGMOID DIVERTICULITIS BACK AND FLANK PAIN, LEFT CAD S/P STENT APPLICATION, 2015 HYPERTENSION DYSLIPIDEMIA DM, TYPE 2, 1997 CHRONIC KIDNEY DISEASE, STAGE 3 ANEMIA NEUROPATHY GERD LEFT UMBILICAL HERNIA DIVERTICULOSIS, DR. ASHBY COLONOSCOPY, 2015 BPH OSTEOARTHRITIS, SPINE AND HANDS DDD DISEASE AND FORAMINAL STENOSIS SPINE DEPRESSION/ANXIETY DISCHARGE INSTRUCTIONS: Followup appointment in [] days with []. MEDICATIONS AT DISCHARGE: Alprazolam (Xanax) 0.5 mg PO TID PRN Aspirin (Aspirin Ec) 81 mg PO DAILYWM [facility] Donepezil HCl (Aricept) 5 mg PO DAILY [facility] Metronidazole 500 mg PO TID [facility] Cipro 500 mg PO BID [facility] Insulin Detemir (Levemir) 70 unit SUBCUT BEDTIME [facility] Lisinopril (Zestril) 10 mg PO DAILY [facility] Non-Formulary Medication (Doxepin Hcl [Doxepin Hcl]) 250 mg PO BEDTIME [facility] Tamsulosin HCl (Flomax) 0.4 mg PO DAILY [facility] Cholecalcciferol 1000 units PO DAILY [facility] Ferrous Sulfate 325 mg PO DAILY [facility] Rosuvastatin Calcium (Crestor) 10 mg DAILY [facility] Ferrous Sulfate 325 mg PO DAILY Fenofibrate (Tricor) 160 mg PO DAILY [place] 3 Fatty Acid/Fish Oil Niacin 1000 mg PO BID [facility] NEW PRESCRIPTIONS: Flagyl 500 mg TID for 7 days Cipro 500 mg BID for 7 days DIET INSTRUCTIONS: Consistent Carbohydrate, Avoid nuts, seeds, husks ACTIVITY: Resume as tolerated SMOKING: Not applicable DISEASE SPECIFIC EDUCATION: Diverticulitis Medications Appointments HOSPITAL COURSE: This is a 57 year old white male who presented to the emergency room with abdominal pain and low grade fever. CT scan showed acute sigmoid diverticulitis. He was admitted and placed on Flagyl 500 mg IV Q eight hours along with Rocephin 1 gram IV daily along with IV fluids 75 cc/hr of normal saline. Initially after starting the IV fluids his hemoglobin dropped to 9.8 likely due to hemodilution. His kidney function was elevated with a creatinine of 2. He does have a history of chronic kidney disease, however, with IV fluids his kidney function has improved. Today, on day of discharge, hemoglobin was 10.4, BUN down to 26 and creatinine at 1.7. This is extremely good for him. He had a repeat CT scan this morning which showed diverticulosis , no active diverticulitis. He states he wishes to go home. He has been eating 75-100% of his meals and has been afebrile. He reports that he is still having slight diarrhea but only 1-2 times yesterday and is not having any abdominal pain. So, he will be discharged on Flagyl 500 mg PO TID for the next 5 days along with Cipro 500 mg PO BID for the next five days and follow up in our office next week. SPECIFIC ORDERS: An appointment is scheduled with Dr. Richards/Glendy Harrell APRN on February 10 at 8:45 am An appointment is scheduled with Dr. Erik Ashby/Yocasta Alcantar APRN on at 1:30 pm [facility] CD provided for CT Abd/Pelvis An appointment is scheduled with Treva Ellison RDH on February 09 at 1 pm for instruction regarding diverticulitis diet/ADA diet TIME SPENT: More than 60 minutes. MTDD
--- NOTE | 2018-02-09 10:28 | PN ---
DATE OF SERVICE: 02/04/18 SUBJECTIVE: The patient was seen and examined with the nurses practitioner and case management specialist. The patient's condition has improved. He is eating better. He is walking around. The patient has very mild abdominal discomfort. Diet was discussed. TIME SPENT: More than 30 minutes. Plan and coordination of the patient's care discussed in the presence of nurse. JOSEPH
--- NOTE | 2018-02-09 10:34 | PN ---
DATE OF SERVICE: 02/05/18 SUBJECTIVE: Manuel Ohara was hospitalized with acute diverticulitis, which seems to have resolved practically. PHYSICAL EXAMINATION: The patient is in no distress. HEENT: Head normocephalic, atraumatic. Eyes: Extraocular muscles are intact. Pupils are equal, round and reactive to light and accommodation. Ears: No lesions. Nose appeared normal. Throat: No exudate or erythema. NECK: Supple. No JVD, no carotid bruit. No lymphadenopathy or thyromegaly. LUNGS: Clear to auscultation. Percussion note normal. Chest symmetrical. HEART: S1, S2, no S3. No murmurs. No cyanosis or clubbing. No ascites. Pulses: Dorsalis pedis and posterior tibial pulses +1 to +2 both sides. ABDOMEN: Soft. Nontender. Bowel sounds active. No CVA tenderness. No mass felt. EXTREMITIES: No edema. Full range of motion of all extremities, equal. NEUROLOGIC: No focal deficit. Cranial nerves II through XII are grossly intact. No headache, no double vision or headache. SKIN: Not dry. Intact. Turgor - normal. LYMPHATIC: No palpable lymph nodes/no lymphedema. MUSCULOSKELETAL: Normal joints with no swelling. Muscle tone is normal. ASSESSMENT: 1. ACUTE DIVERTICULITIS CLINICALLY RESOLVED. PLAN: 1. Discharge the patient to home. 2. Antibiotics. CONDITION: Stable. TIME SPENT: More than 30 minutes. Plan and coordination of the patient's care discussed in the presence of nurse. JOSEPH
--- NOTE | 2018-02-09 10:37 | PN ---
BILLING Admission day 02/03/18 - level 5 02/04/18 - Intermediate 02/05/18 - Discharge [facility]
== END 2018-02-05 14:42 | disposition home or self-care (01) | DRG 392 ==
LOC: ED 08:47 → MEDSURG B 11:15
PROVIDERS: ADMIT Internal Medicine; ATTEND Internal Medicine
DX: R10.32 Left lower quadrant pain (principal); K57.92 Diverticulitis of intestine, part unspecified, without perforation or abscess without bleeding; K59.00 Constipation, unspecified; K21.9 Gastro-esophageal reflux disease without esophagitis; R35.0 Frequency of micturition; R63.0 Anorexia; E11.9 Type 2 diabetes mellitus without complications; E78.5 Hyperlipidemia, unspecified; E86.0 Dehydration; F41.9 Anxiety disorder, unspecified; F32.9 Major depressive disorder, single episode, unspecified; G62.9 Polyneuropathy, unspecified; G47.00 Insomnia, unspecified; M47.9 Spondylosis, unspecified; N28.9 Disorder of kidney and ureter, unspecified; N18.3 Chronic kidney disease, stage 3 (moderate); I10 Essential (primary) hypertension; D64.9 Anemia, unspecified
CPT/HCPCS: 36415; 74176; 80053; 81001; 82150; 82272; 82962; 83605; 83690; 84145; 85025; 87040; 93005; 93010; 97802; 99284

== ENCOUNTER 2018-07-16 08:28 | Outpatient (CLI) ==
[2012-10-19 09:40] VITALS: TEMP 98.2
== END 2018-07-16 08:29 | disposition home or self-care (01) ==
LOC: LAB 08:28
PROVIDERS: ATTEND Nurse Practitioner Family
DX: N18.3 Chronic kidney disease, stage 3 (moderate) (principal); I10 Essential (primary) hypertension
CPT/HCPCS: 36415; 80053; 81001; 82570; 84100; 84156; 84550; 85027

== ENCOUNTER 2018-07-29 13:16 | Outpatient (CLI) ==
[2012-10-19 09:40] VITALS: TEMP 98.2
--- NOTE | 2018-07-29 17:19 | US ---
EXAM: Renal ultrasound HISTORY: Chronic kidney disease, diabetes mellitus COMPARISON: None TECHNIQUE: Renal ultrasound was performed FINDINGS: Right kidney measures 4.3 x 4.2 x 11.7 cm. Left kidney measures 4.8 x 4.2 x 9.6 cm. Lynda l cortical echogenicity is increased. No hydronephrosis or renal calculus large enough to cause acou stic shadowing. Cyst in the right superior kidney measuring 4.2 x 2.9 x 4.1 cm with an internal sept ation. Additional 0.9 cm cyst right mid kidney and a 0.7 cm cyst left mid kidney. The decompressed and poorly evaluated. Heterogeneous appearance of the liver with focal hyperechoic regions, indeterm inate and incompletely evaluated, though may reflect areas of focal fatty infiltration. IMPRESSION: 1. Findings suggesting medical renal disease . 2. No hydronephrosis. 3. Mildly complicated right renal cyst with internal septation. Additional renal cysts. Recommend sonographic follow-up 6 months. 4. Heterogeneous appearance of the liver with focal hyperechoic regions, indeterminate and incomplet amadeo evaluated, though may reflect areas of focal fatty infiltration. Recommend correlation with dedi cated right upper quadrant ultrasound.
--- NOTE | 2018-07-29 21:44 | MRI ---
EXAM: MRI lumbar spine without IV contrast. DATE: 29 July 2018. HISTORY: Low back pain. TECHNIQUE: Sagittal and axial T1W and T2W sequences of the lumbar spine along with sagittal IR and c oronal T2W sequences were obtained using 1.2 [place]oxanna magnet. No IV contrast. COMPARISON: MRI L-spine 02/08/2014. CT L-spine 10 August 2014. FINDINGS: There are five [id number] lumbar vertebra. No lumbar scoliosis is evident. There ar e no acute lumbar fracture, subluxation, or pars interarticularis defect is demonstrated. T2W/T1W krystle ne marrow signal is more heterogeneous compared to August 2014. However, no significant IR hyperinten sity is apparent. The lumbar intervertebral discs are normal in height. No acute sacral fracture or stress reaction is evident. Tiny anterior osteophytes is seen in the right SI joint. Conus medulla ris terminates at T12-L1. The visible spinal cord is normal. No retroperitoneal lymphadenopathy, paraspinal mass, or aortic aneurysm is detected. Paraspinal musc ulature is symmetric bilaterally. Visible portions of the liver, spleen, adrenal glands are normal. T2W bright, T1W isointense, 3 mm focus in the posteromedial cortex upper pole left kidney is not ful ly characterized. T2W bright, T1W dark, 7 mm focus in the posteromedial cortex midzone left kidney i s not fully characterized. T2W bright, T1W dark, 3.7 cm lesion in the upper pole cortex right kidney corresponds with water density structure on CT scan. CBD does not appear enlarged on these limited images. T2W bright, T1W dark, 4.5 mm and 3 mm foci anterior to the right facet joint at L4-5 may rep resent benign perineural cysts or synovial cysts. Segmental analysis: T11-12: No disc protrusion, central stenosis or foraminal stenosis. T12-L1: No disc protrusion, central stenosis or foraminal stenosis. L1-2: Minor concentric disc bulge causes slight bilateral inferior foraminal encroachment. No centr al canal stenosis. L2-3: Minimal concentric disc bulge and minor facet arthropathy cause mild central canal stenosis, m inor right foraminal narrowing, and mild left foraminal stenosis. L3-4: Moderate concentric disc bulge, mild facet arthropathy, and mild ligamentum flavum hypertrophy cause mild central canal stenosis, mild right foraminal stenosis, and mild/moderate left foraminal s tenosis. L4-5: Small concentric disc bulge, marked bilateral facet arthropathy, and marked ligamentum flavum hypertrophy cause marked central canal stenosis and moderate bilateral foraminal stenoses. Right L4 nerve root contacts the disc bulge near the lateral margin of the foramen. T2W bright, 4.5 mm and 3 mm foci in the far lateral margin of the right foramen, abutting the right facet joint may represent perineural cyst vs synovial cyst. A 4 mm diameter, T2W bright, T1W dark, synovial cyst is present in the posterior margin of the right facet joint. Small /moderate right facet effusion is present. L5-S1: Small concentric disc bulge and mild facet arthropathy cause mild central canal stenosis and mild bilateral foraminal stenoses. Each L5 nerve root contacts the disc bulge near the lateral corazon n of the foramen. IMPRESSIONS: 1. Lumbar spine mild spondylosis, multilevel facet arthropathy (especially L4-5), and multilevel min or DDD. 2. Multilevel lumbar foraminal stenoses. Right L4 and both L5 nerve roots contact disc bulges near the foramen, and may be sources for pain/radiculopathy. 3. Multilevel central canal stenoses (L2-3: Mild. L3-4: Mild. L4-5: Marked. L5-S1: Mild). 4. Increasing bone marrow heterogeneity. DDX: Fatty marrow infiltration, tumor infiltrative proces s (ie. multiple myeloma). Recommend correlation for anemia.
--- NOTE | 2018-07-29 21:59 | MRI ---
EXAM: MRI cervical spine without IV contrast. DATE: 29 July 2018. HISTORY: Neck pain. TECHNIQUE: Sagittal and axial T1W and T2W sequences of the cervical spine along with sagittal IR and coronal T2W sequences were obtained using 1.2 Roxanna magnet. No IV contrast. COMPARISON: MRI C-spine 01/18/2016. FINDINGS: There is no cervical scoliosis. Small anterior osteophytes are present at multiple levels . No acute c-spine fracture, subluxation, osseous malignancy, or jumped facet is apparent. T2W/T1W bone marrow signal is heterogeneous. IR signal intensity is homogeneous. Marked C3-4, mild/moderate C4-5, and moderate C5-6 disc space narrowing is detected. Mild C6 and minor C7 anterior wedge confi gurations are chronic. Cervical spinal canal appears developmentally narrow. T2W bright vertical ba nds measuring 1 mm diameter x 12 mm length are seen within the right and left lateral aspect of the s nickolas cord at C3-4 level. No cord edema or neoplasm is identified. Visible brainstem and cerebellum are unremarkable. A few inferior left mastoid air cells have T2W br ight signal suggesting minor effusion or mastoiditis. No cervical lymphadenopathy, suspicious neck m ass, apical lung mass, pneumonia, or pleural effusion is demonstrated. Segmental analysis: C2-3: Small posterior disc/osteophyte complex (3.3 mm AP) does not contact the cord. Canal is 7.4 m m AP. Mild/moderate right foraminal narrowing is due to uncinate hypertrophy and moderate right face t arthropathy. Small right and tiny left facet effusions are present. C3-4: Broad bilobed posterior disc/osteophyte complex (3.9 mm AP) flattens the cord anteriorly. Can al is 6.3 mm AP. Moderate right and moderate/marked left foraminal stenoses are due to uncinate hype rtrophy and minor facet disease. C4-5: Broad midline to left paracentral disc/osteophyte complex (4.5 mm AP x 12 mm transverse) nida ens the cord against the posterior wall of the canal. Canal is 5.5 mm AP. Moderate right and modera te/marked left foraminal stenoses are due to uncinate hypertrophy and mild left facet arthropathy. C5-6: Broad posterior disc/osteophyte complex enthesis 2.4 mm AP right paracentral, 3.9 mm AP midlin e/left paracentral) flattens the left anterolateral aspect of the cord.. Canal is 6.3 mm AP. Mild r ight and marked left foraminal stenoses are due to uncinate hypertrophy. C6-7: Broad posterior disc/osteophyte complex (3.3 mm AP) flattens the cord anteriorly. Canal is 6. 3 mm AP. Moderate right and mild left foraminal stenoses are due to uncinate hypertrophy and minor f acet arthropathy. Small left facet effusion is present. C7-T1: Small posterior disc bulge (1.9 mm AP) does not contact the cord. Canal is 9 mm AP. Mild ri ght and minor left foraminal stenoses are due to uncinate hypertrophy and minor facet arthropathy. T1-2: Normal.. IMPRESSIONS: 1. C-spine mild spondylosis, mild facet arthropathy, and multilevel DDD. 2. Multilevel central canal stenoses (C2-3: Moderate. C3-4: Marked. C4-5: Severe. C5-6: Marked. C6-7: Marked. C7-T1: Mild). 3. Multilevel cervical cord flattening. Mild bilateral paramidline myelomalacia at C3-4. 4. Multilevel cervical foraminal stenoses as described. 5. Marrow heterogeneity - DDX: Fatty marrow infiltration. Tumor filtration (multiple myeloma) is l ess likely since there is no heterogeneity on the IR sequence. 6. Minimal left mastoid effusion vs mastoiditis.
== END 2018-07-29 13:17 | disposition home or self-care (01) ==
LOC: RAD 13:16
PROVIDERS: ATTEND Internal Medicine
DX: M54.2 Cervicalgia (principal); M54.9 Dorsalgia, unspecified; N18.9 Chronic kidney disease, unspecified; E11.9 Type 2 diabetes mellitus without complications